=== PATIENT | male | born 1975 | race Two or more races ===

== ENCOUNTER → 2016-09-15 | Outpatient (CLI) | payer OTHER ==
[2016-09-15 15:56] LABS: COMPLEMENT C4 17.7 MG/DL (10-40)
== END ==
LOC: M LAB 14:37
PROVIDERS: ATTEND Allergy & Immunology
DX: J30.1 Allergic rhinitis due to pollen (principal)

== ENCOUNTER → 2017-05-11 | Outpatient (CLI) | payer OTHER ==
[~2017-05-11] MED LIST: METHACHOLINE KIT (J7674) INH ONE
--- NOTE | 2017-05-11 16:06 | PFTRPT ---
Tech: [employer] Age: 41 Sex: Male Race: Height: 68.00 Inches Weight: 212.00 Lbs BSA: 2.10 Diagnosis: SOB METHACHOLINE CHALLENGE REPORT: ORDERING PROVIDER: Cristhian Chase PA-C DATE OF SERVICE: 05/11/17 INTERPRETATION: The study was of excellent technical quality. Under protocol, methacholine was administered. At a dose of 2.5 mg (13.875 CDUs), a 23% decline in the FEV1 was noted. The PC20 of 1.78 is significant. Flow rates returned to baseline post bronchodilator administration. IMPRESSION: Positive methacholine challenge study. MTDD
== END ==
LOC: M CARPUL 14:02
PROVIDERS: ATTEND Physician Assistant
DX: R06.02 Shortness of breath (principal)